=== PATIENT | male | born 1950 | race Caucasian/White ===

== ENCOUNTER 2024-01-31 17:27 | Observation (INO) | payer MEDICARE, MEDICAID ==
[~2024-01-31] VITALS: Ht 182.9 cm; Wt 65.8 kg
[2024-01-31 17:30] VITALS: BP_SYST 139; PULSE 85; RESP 18; TEMP 98.6; O2SAT 97
[2024-01-31 18:17] LABS: BASOPHILS % (AUTO) 0.4 % (0.0-2.0); EOSINOPHILS # (AUTO) 0.1 K/uL (0.0-0.4); EOSINOPHILS % (AUTO) 1.2 % (0.0-4.0); HEMATOCRIT 38.5 % (36-54); HEMOGLOBIN 13.1 g/dL (14.0-18.0); LYMPHOCYTES # (AUTO) 1.4 K/uL (1.0-5.5); LYMPHOCYTES % (AUTO) 27.9 % (20.5-51.5); MEAN CORPUSCULAR HEMOGLOBIN 31 pg (27-31); MEAN CORPUSCULAR HGB CONC 34 % (32-36); MEAN CORPUSCULAR VOLUME 92 fL (79.0-98.0); MONOCYTES # (AUTO) 0.6 K/uL (0.0-1.0); NEUTROPHILS % (AUTO) 59.5 % (40.0-70.0); PLATELET COUNT (AUTO) 150 K/uL (130-430); RED BLOOD CELL COUNT(AUTO) 4.18 MIL/uL (4.2-6.2); RED CELL DISTRIBUTION WIDTH 13.5 % (9.0-15.0); WHITE BLOOD COUNT (AUTO) 5.1 K/uL (4.8-10.8)
[2024-01-31 18:31] LABS: ANION GAP 10 (5-15); CARBON DIOXIDE 24 mmol/L (23-29); CHLORIDE 100 mmol/L (98-107); CREATININE 1.66 mg/dL (0.55-1.30); POTASSIUM 4.2 mmol/L (3.5-5.1); SODIUM SERUM 134 mmol/L (136-145); UREA NITROGEN, BLOOD 33 mg/dL (8-21)
[2024-01-31 18:34] LABS: GLUCOSE 499 mg/dL (74-106)
[2024-01-31] MEDS: INSULIN REGULAR, HUMAN 10 UNITS/0.1 ML, 3 ML VIAL IVP ONE (18:45)
[2024-01-31 18:59] LABS: BILIRUBIN,URINE NEGATIVE (NEGATIVE); BLOOD, URINE NEGATIVE (NEGATIVE); CLARITY/URINE CLEAR (CLEAR); COLOR,URINE YELLOW (YELLOW); GLUCOSE,URINE 3+ (NEGATIVE); KETONES,URINE NEGATIVE (NEGATIVE); LEUKOCYTE ESTERASE ,URINE NEGATIVE (NEGATIVE); NITRITE, URINE NEGATIVE (NEGATIVE); PROTEIN URINE TRACE (NEGATIVE); UROBILINOGEN,URINE 0.2 (0.2-1.0)
[2024-01-31 19:15] LABS: RBC,URINE NONE SEEN /HPF (0-3); WBC,URINE 0-3 /HPF (0-3)
[2024-01-31 19:16] LABS: BACTERIA,URINE RARE /HPF (None Seen); MUCUS,URINE None Seen /LPF (None Seen)
[2024-01-31] MEDS: INSULIN REGULAR, HUMAN 10 UNITS/0.1 ML, 3 ML VIAL SUBCUT ONE (20:23)
[2024-02-01] MEDS ORDERED: LOSA25TA18 PO (00:51)
[2024-02-01] MEDS ORDERED: GABA-529 PO (00:51)
[2024-02-01] MEDS ORDERED: METO25TA6 PO (00:51)
[2024-02-01] MEDS ORDERED: GLIM4TAB37 PO (00:51)
[2024-02-01] MEDS ORDERED: FLUO-408 PO (00:51)
[2024-02-01] MEDS ORDERED: BUPR-48 PO (00:51)
[2024-02-01] MEDS ORDERED: DAPA10TA PO (00:51)
[2024-02-01] MEDS ORDERED: METF-381 PO (00:51)
[2024-02-01] MEDS ORDERED: FINA5TAB11 PO (00:51)
[2024-02-01] MEDS ORDERED: MORPHINE 2 MG/ML INJ. SYRINGE IVP PRN (02:15)
[2024-02-01] MEDS ORDERED: D5/0.45 NS 1,000 ML IV ONE (02:15)
[2024-02-01] MEDS ORDERED: ONDANSETRON HCL 4 MG/2 ML VIAL IVP PRN (02:15)
[2024-02-01 02:54] VITALS: BP_SYST 139; PULSE 72; RESP 16; TEMP 97.6; O2SAT 97
[2024-02-01] MEDS: MORPHINE 2 MG/ML INJ. SYRINGE IVP PRN (03:36)
[2024-02-01] MEDS ORDERED: INSULIN REGULAR, HUMAN 100 UNITS/ML, 3 ML VIAL (humuLIN R) SUBCUT PRN (04:45)
[2024-02-01] MEDS: NACL 0.9% 1,000 ML IV ONE (05:22)
[2024-02-01 08:00] VITALS: O2SAT 100
[2024-02-01] MEDS: NACL 0.9% 1,000 ML IV SCH (11:15)
[2024-02-01] MEDS ORDERED: ACETAMINOPHEN 325 MG TABLET PO PRN ×2 (11:15→11:30)
[2024-02-01] MEDS ORDERED: HYDROcodone/ACETAMIN 10-325 MG TAB PO PRN (11:15)
[2024-02-01] MEDS ORDERED: NALOXONE HCL 0.4 MG/ML AMP (NARCAN) IVP PRN ×2 (11:15)
[2024-02-01] MEDS ORDERED: LORazepam 2 MG/ML VIAL IVP PRN (11:15)
[2024-02-01] MEDS ORDERED: HYDROcodone/ACETAMIN 5-325 MG TAB (NORCO/ VICODIN) PO PRN (11:15)
[2024-02-01] MEDS ORDERED: HYDR-3927 PO ×2 (11:48→11:53)
[2024-02-01] MEDS: LOSARTAN POTASSIUM 25 MG TABLET PO ONE (11:51)
[2024-02-01] MEDS: GLIMEPIRIDE 2 MG TABLET PO ONE (11:51)
[2024-02-01] MEDS: buPROPion HCL 150 MG XL TAB PO ONE (11:52)
[2024-02-01] MEDS: FLUoxetine HCL 20 MG CAPSULE (PROzac) PO ONE (11:52)
[2024-02-01] MEDS: FINASTERIDE 5 MG TABLET (PROSCAR) PO ONE (11:52)
[2024-02-01] MEDS: EMPAGLIFLOZIN 10 MG TABLET PO ONE (11:52)
[2024-02-01 11:57] VITALS: BP_SYST 149; PULSE 72; RESP 16; TEMP 98.3; O2SAT 98
[2024-02-01 13:06] VITALS: BP_SYST 130; PULSE 73; RESP 15; TEMP 97.6; O2SAT 100
[2024-02-01] MEDS ORDERED: GABAPENTIN 100 MG CAPSULE PO SCH (15:00)
[2024-02-01] MEDS ORDERED: metFORMIN HCL 500 MG TABLET PO SCH (21:00)
[2024-02-01] MEDS ORDERED: METOPROLOL TARTRATE 25 MG TABLET PO SCH (21:00)
[2024-02-02] MEDS ORDERED: GLIMEPIRIDE 2 MG TABLET PO SCH ×2 (09:00)
[2024-02-02] MEDS ORDERED: FLUoxetine HCL 20 MG CAPSULE (PROzac) PO SCH (09:00)
[2024-02-02] MEDS ORDERED: FINASTERIDE 5 MG TABLET (PROSCAR) PO SCH (09:00)
[2024-02-02] MEDS ORDERED: buPROPion HCL 150 MG XL TAB PO SCH (09:00)
[2024-02-02] MEDS ORDERED: LOSARTAN POTASSIUM 25 MG TABLET PO SCH (09:00)
[2024-02-02] MEDS ORDERED: EMPAGLIFLOZIN 10 MG TABLET PO SCH (09:00)
== END 2024-02-01 13:48 | disposition home or self-care (01) ==
LOC: SED 17:27 → SMU 02-01 02:05
PROVIDERS: ADMIT Preventive Medicine Preventive Medicine/Occupational Environmental Medicine; ATTEND Preventive Medicine Preventive Medicine/Occupational Environmental Medicine
DX: K40.20 Bilateral inguinal hernia, without obstruction or gangrene, not specified as recurrent (principal); K80.20 Calculus of gallbladder without cholecystitis without obstruction; I25.10 Atherosclerotic heart disease of native coronary artery without angina pectoris; I25.2 Old myocardial infarction; E11.9 Type 2 diabetes mellitus without complications; N17.9 Acute kidney failure, unspecified; E87.1 Hypo-osmolality and hyponatremia; I70.90 Unspecified atherosclerosis; I10 Essential (primary) hypertension; E78.00 Pure hypercholesterolemia, unspecified; M13.0 Polyarthritis, unspecified; Z87.891 Personal history of nicotine dependence; Z79.84 Long term (current) use of oral hypoglycemic drugs; Z95.1 Presence of aortocoronary bypass graft; Z87.442 Personal history of urinary calculi; Z79.899 Other long term (current) drug therapy
CPT/HCPCS: 99285; 96372; 80048; 81001; 85025; 36415; 74176; 82948 ×2; 81000; 96361; 96374; J2270; G0378; 81015; J1815